=== PATIENT | female | born 1990 | race Two or more races ===

== ENCOUNTER → 2024-03-28 | Day surgery (SDC) | payer OTHER ==
[2024-03-27 10:24] VITALS: BP 111/76
[~2024-03-28] VITALS: Ht 152.4 cm; Wt 49.9 kg
[~2024-03-28] MED LIST: CEFAZOLIN SODIUM 1,000 MG VIAL IV ONE; MORPHINE SULFATE 4 MG/ML VIAL IV ONE
== END | disposition home or self-care (01) ==
LOC: ADM 03-27 09:15 → CIR.AMB 06:05 → EDBD 09:15 → CIR.AMB 09:15
PROVIDERS: ATTEND Surgery
DX: D48.62 Neoplasm of uncertain behavior of left breast (principal)

== ENCOUNTER 2024-04-10 20:22 | Emergency (ER) | payer OTHER ==
[~2024-04-10] VITALS: Ht 152.4 cm; Wt 48.1 kg
[2024-04-10] MEDS ORDERED: CEFTRIAXONE SODIUM 1,000 MG VIAL ONE (21:59)
[2024-04-10] MEDS ORDERED: CEFTRIAXONE SODIUM 1,000 MG VIAL IM ONE (22:00)
[2024-04-10] MEDS ORDERED: LIDOCAINE HCL 1% 10ML VIAL ONE (22:01)
[2024-04-10] MEDS ORDERED: KETOROLAC TROMETHAMINE 60 MG VIAL IM ONE ×2 (22:09→22:15)
[2024-04-10 23:29] LABS: HEMATOCRIT 38.3 % (36.0-45.00); HEMOGLOBIN 12.9 g/dL (12.0-15.00); MEAN CELL VOLUME 90.4 fL (80.00-100.00); MEAN CORPUSCULAR HEMOGLOBIN 30.4 pg (27.00-32.0); MEAN CORPUSCULAR HGB CONC 33.6 g/dl (32.0-36.0); PLATELET COUNT 394 K/uL (150-450); RED BLOOD COUNT 4.24 M/uL (4.00-6.00); RED CELL DISTRIBUTION WIDTH 12.2 % (11.5-14.5)
[2024-04-10 23:42] LABS: INR 0.99; PARTIAL THROMBOPLASTIN TIME 28.8 SECONDS (22.0-34.0); PROTHROMBIN TIME 10.8 SECONDS (9.0-11.5)
[2024-04-10 23:48] LABS: ALBUMIN 4.4 gm/dL (3.4-5.0); BILIRUBIN TOTAL 0.7 mg/dL (0.3-1.2); CALCIUM 9.5 mg/dL (8.5-10.1); CREATININE SERUM 0.63 mg/dL (0.55-1.02); GFR 106.92; POTASSIUM 3.75 mEq/L (3.5-5.1); TOTAL PROTEIN 8.4 gm/dL (6.4-8.2)
== END 2024-04-10 22:15 | disposition home or self-care (01) ==
LOC: ER 20:24
PROVIDERS: General Practice
DX: N63.20 Unspecified lump in the left breast, unspecified quadrant (principal)

== ENCOUNTER 2024-04-11 08:25 | Outpatient (CLI) | payer OTHER | END 2024-04-11 08:35 | disposition home or self-care (01) | LOC: MAMO-SONO 08:25 | PROVIDERS: ATTEND Surgery | DX: N61.1 Abscess of the breast and nipple (principal); N60.02 Solitary cyst of left breast ==